=== PATIENT | female | born 1995 | race African-American/Black ===

== ENCOUNTER 2024-10-06 04:26 | Emergency (ER) | payer SELFPAY ==
[2024-10-06 04:28] VITALS: BP 120/80
[2024-10-06 04:50] VITALS: BMI 27.2
[2024-10-06 05:06] VITALS: BP 101/70
[2024-10-06] MEDS: DUONEB 3 ML INH (05:42)
[2024-10-06] MEDS: DELTASONE 50 MG PO (05:42)
[2024-10-06] MEDS: ZITHROMAX 500 MG PO (05:42)
[2024-10-06 05:48] VITALS: BP 112/50
[2024-10-06 05:53] LABS: COVID-19 Antigen Negative (Negative)
--- NOTE | 2024-10-06 06:03 | ED.GENMED ---
History of Present Illness
General
Chief Complaint: Breathing Problem
Source: patient and family (Mother at bedside)
Exam Limitations: none
Time Seen by Provider: 10/06/24 05:13
Nursing documentation reviewed up to this point in time: agreed with
History of Present Illness
History of Present Illness:
This is a 29-year-old woman with history of mild intermittent asthma. Not maintained on maintenance inhalers but does use albuterol rescue inhaler for rare occasions usually with URIs.
She complains of several day history of nasal congestion with onset of cough a few days ago, increased work of breathing since yesterday and has been using her albuterol inhaler multiple times throughout the day yesterday.
Along with mild nasal congestion she developed left earache yesterday. Cough has been dry. She denies fever, no chest pain.
No recent travel. She denies leg pain or swelling.
She has been exposed to several younger children with URI symptoms last week.
She denies risk of , last menstrual period ended a few days ago.
She takes no medicines on a daily basis.
Lifelong non-smoker.
No previous hospitalizations for asthma.
Past History
Past History
ED Past Medical History: Asthma and Other (Migraine headaches)
ED Past Surgical History: Gynecological
Social History
Tobacco: Non-smoker
Alcohol: None
Living: with family
Family History
Family History: Other (Noncontributory)
Phy Exam
Physical Exam
Physical Exam:
GENERAL: 29-year-old female appears her stated age, bright and alert, pleasant, appears in no acute distress. Intermittent dry brief cough is noted. No respiratory distress. Able to speak in full sentences. Pulse ox 98% on room air. Afebrile.
Mother is accompanying.
EYE: anicteric
NECK: Supple, nontender, no meningismus, no significant adenopathy.
ENT: posterior pharynx is clear, oral mucosa is moist. Left TM is dull, red with pearly effusion. Right TM is clear. Nares have moderately boggy pale blue turbinates with scant clear rhinorrhea.
CARDIAC: Regular rate and rhythm. no murmur.
LUNGS: no acute respiratory distress, mildly decreased breath sounds throughout with scattered end inspiratory and expiratory wheezing bilaterally.
ABDOMEN: Soft, nondistended, without focal tenderness, normoactive BS.
NEUROLOGICAL: Alert and oriented x3, no focal neuro deficits.
SKIN: Warm and dry, normal color, skin intact. No rash.
MUSCULOSKELETAL: No C/C/E. peripheral pulses are full and equal b/l. No palpable tenderness.
PSYCH: Normal and appropriate interaction.
Scores
Heart Failure Risk
Heart Failure Risk Score: Not Applicable
Course
Orders/Labs/Results
Orders:
Orders
10/06/24 04:52
COVID-19 Antigen Urgent
Source: Nasal Swab
Influenza A+B Rapid Molecular Urgent
SONDRA Source: Nasal Swab
Specimen Description:
10/06/24 05:34
Azithromycin [Zithromax] 500 mg PO NOW STA
Ipratropium/Albuterol Sulfate [Duoneb] 3 ml INH R NOW STA
Prednisone [Deltasone] 50 mg PO NOW STA
Vital Signs
Initial and Last Documented VS:
Initial Vital Signs
Temp Pulse Resp BP Pulse Ox
98.2 F 90 20 120/80 100
10/06/24 04:28 10/06/24 04:28 10/06/24 04:28 10/06/24 04:28 10/06/24 04:28
Last Documented Vital Signs
Temp Pulse Resp BP Pulse Ox
98.2 F 92 16 112/50 97
10/06/24 04:28 10/06/24 05:48 10/06/24 05:48 10/06/24 05:48 10/06/24 05:48
MDM/Problems Addressed
Differential Diagnosis Includes:
History and exam consistent with acute exacerbation of asthma. Pneumonia is less likely.
She is also noted to have acute left otitis media.
COVID and flu testing are pending.
Will give DuoNeb nebulizer and initiate prednisone for asthma exacerbation. Will start Zithromax for acute left otitis media.
Overall well in appearance. Without respiratory distress. Afebrile. At this point no indication for imaging nor laboratory studies other than COVID and flu testing.
Chronic conditions affecting care: Asthma
Acute Exacerbation and/or Progression of Chronic Illness: Asthma
*Pulse Oximetry
Patient hypoxic: no
*Critical Care Note
Total Time (30-74mins, 75-104mins- exclusive of procedures): Not Applicable
Update Note
Update Note:
06:15
Patient feeling improved after nebulizer treatment.
Lungs with increased air movement, minimal end expiratory wheezing persists but otherwise lungs are clear to auscultation.
Cough is markedly improved.
COVID and flu testing are negative.
Patient requesting nebulizer solution and nebulizer as this was more effective than her albuterol inhaler. Prescription for albuterol Nebules and nebulizer has been sent to her pharmacy as well as an additional 2-day course of Zithromax 500 mg once
daily and prednisone taper.
Discussed importance of staying well-hydrated on a daily basis.
Prompt follow-up with PCP for recheck.
Return precautions discussed.
ED Attending Note
-
Portions of this chart may have been created with voice recognition software.� Occasional wrong word or��sound alike� substitutions may have occurred due to the inherent limitations of voice recognition software.
Discharge Plan
Departure
Patient Disposition: Home (Routine Discharge)
Date of Disposition: 10/06/24
Time of Disposition: 06:09
Patient with high blood pressure during this ER visit?: No
Condition: Good
Discharge Problem:
Acute asthma exacerbation, Acute left otitis media
Instructions: Asthma, Adult (DC), Ear infections in adults
Prescriptions:
New
prednisone 10 mg Tablet
See Rx Instructions .ROUTE .COMPLEX Qty: 30 0RF
Rx Instructions:
Take By Mouth:
40 mg daily x3 days, 30 mg daily x3 days,
20 mg daily x3 days, 10 mg daily x3 days.
azithromycin [Zithromax TRI-MIMI] 500 mg tablet
500 mg PO DAILY 2 Days Qty: 2 0RF
albuterol sulfate 2.5 mg /3 mL (0.083 %) solution for nebulization
2.5 mg inhalation QID PRN (Reason: shortness of breath or wheezing) Qty: 180 0RF
(DME) nebulizer and compressor Device
See Rx Instructions .Route Qty: 1 0RF
Rx Instructions:
As directed
No Action
Advil
200 mg PO Q6H PRN (Reason: pain)
albuterol sulfate 90 mcg/actuation Hfa Aerosol Inhaler
2 puff INHALATION 6XD PRN (Reason: wheezing)
Referrals:
Jorge Dhillon DO [Family Provider] - Call in 1-3 days for appt
Interventions
Interventions:
*Risk Screen - Suicide Last Done: 10/06/24 04:28
*General Assessment Last Done: 10/06/24 04:50
*Neglect/Abuse Screening Last Done: 10/06/24 04:28
ED- Fall Risk Assessment Last Done: 10/06/24 04:50
*ED COVID-19 Vaccine History Last Done: 10/06/24 04:50
ED- Cardiac Assessment Last Done: 10/06/24 04:50
ED- Pulmonary Assessment Last Done: 10/06/24 04:50
Discharge Date and Time
Print Language: ZAMBIAN
== END 2024-10-06 06:15 | disposition home or self-care (01) ==
LOC: EMR 04:26
PROVIDERS: EMERGENCY PHYSICIAN Emergency Medicine; FAMILY PHYSICIAN Family Medicine
DX: J45.21 Mild intermittent asthma with (acute) exacerbation (principal); H66.92 Otitis media, unspecified, left ear; Z11.52 Encounter for screening for COVID-19
CPT/HCPCS: 94640; 99283; 87502; 87811

== ENCOUNTER 2025-04-27 20:04 | Emergency (ER) | payer SELFPAY ==
[2025-04-27 20:05] VITALS: BP 142/95
[2025-04-27 21:17] VITALS: BMI 27.4
[2025-04-27 21:18] VITALS: BP 124/84
--- NOTE | 2025-04-27 21:33 | ED.GENMED ---
History of Present Illness
General
Chief Complaint: Allergic Reaction
Time Seen by Provider: 04/27/25 21:33
History of Present Illness
History of Present Illness:
FOCUSED PAST MEDICAL HISTORY
- Migraines, asthma, GERD
REVIEW OF OLD RECORDS
- The patient was seen in the emergency department here at [facility] in October 2022 with an acute asthma exacerbation
Note:
CHIEF COMPLAINT(S)
Shortness of breath and tightness at the site of tuberculosis skin test (PPD) administration.
HISTORY OF PRESENT ILLNESS
The patient is a 30-year-old female who presented with complaints of shortness of breath and chest tightness. The symptoms began after undergoing a tuberculosis skin test (PPD), which was administered on the left forearm. The patient reported
feeling a reaction at the site of injection, describing it as tender and tight. She noted intermittent shortness of breath but was not feeling short of breath during the current encounter. The chest pain was not accompanied by abnormal
electrocardiogram (EKG) findings during examination.
Additional self-reported symptoms included a sensation of throat tightness, though no visible swelling was observed on examination. The patient denied any rash or itchiness. It was noted that she had taken her inhaler but was contemplating whether
she required further breathing treatment. The placing of the tuberculosis skin test and a reaction at the site were discussed, and the possibility of anxiety or panic contributing to her symptoms was considered.
SOCIAL HISTORY
The patient lives with her mother, who was present during the consultation.
MEDICATIONS
The patient uses an inhaler, but no specific medications or dosages were mentioned.
REVIEW OF SYSTEMS
- Respiratory: Intermittent shortness of breath.
- Musculoskeletal: Tenderness and tightness at the site of PPD test administration.
- Neurological: Sensation of throat tightness, but no visible swelling or physical obstruction identified.
PHYSICAL EXAM
General: Alert, no acute distress.
Skin: Warm, dry.
Head: Normocephalic, atraumatic.
Neck: Supple, trachea midline.
Eye Ears, nose, mouth and throat: Oral mucosa moist, no visible swelling noted. No uvular edema, no tongue swelling
Cardiovascular: Normal peripheral perfusion, No edema.
Respiratory: Respirations are non-labored. Breath sounds are clear and equal, moving air well, no wheeze
Gastrointestinal: Abdomen nondistended.
Back: Normal range of motion, Normal alignment. Some tightness noted to the upper trapezius musculature
Musculoskeletal: No significant tenderness at the PPD site of the left forearm
Neurological: Alert and oriented to person, place, time, and situation, No focal neurological deficit observed.
Psychiatric: Cooperative, appropriate mood & affect.
PROBLEM LIST
Acute:
- Reaction to tuberculosis skin test (PPD) administration.
- Anxiety/Panic-related symptoms.
PLAN
1. Reassurance provided regarding airway patency and non-labored breathing.
2. Advised taking Benadryl before bed as needed to alleviate anxiety-related symptoms.
3. Prescription for an Epinephrine auto-injector (EpiPen) provided for potential future allergic reactions causing severe symptoms.
4. Advised against the use of steroids due to potential anxiety exacerbation unless symptoms worsen.
DIFFERENTIAL DIAGNOSIS
The Differential Diagnosis includes, in no particular order and is not limited to:
1. Localized reaction to the PPD test.
2. Anxiety or panic attack.
3. Allergic reaction or hypersensitivity to PPD or adjuvant.
4. Stress or emotional distress.
5. Musculoskeletal pain around the injection site.
6. Respiratory distress or reversible airway obstruction.
7. Upper respiratory tract infection.
8. Gastroesophageal reflux disease (GERD)-related symptoms.
9. Tracheitis or pharyngitis.
10. Cardiac etiology, though less likely given normal EKG findings.
EKG
- Sinus 70, normal axis, nonspecific ST abnormality, no old to compare
SUMMARY OF ENCOUNTER
The patient, a 30-year-old female, presented with shortness of breath and chest tightness after receiving a TB test (PPD) earlier today. She suspected a reaction to the test. She does have a known history of asthma and reported chest discomfort.
Examination showed she was moving air well, and her EKG was normal. The patient also admitted to experiencing anxiety. After taking diphenhydramine (Benadryl), her symptoms improved, leading to a probable diagnosis of a reaction to the TB test, with
anxiety potentially contributing.
ASSESSMENT
The patient appears to have a localized reaction to the tuberculosis skin test and possibly anxiety-induced symptoms. Her asthma history and absence of anaphylactic signs suggest a mild reaction.
PLAN
1. Continue monitoring symptoms.
2. Take additional diphenhydramine (Benadryl) if needed at night.
3. Prescribed an epinephrine auto-injector for potential future allergic reactions.
4. Avoid benzodiazepines at this time due to symptom improvement with diphenhydramine.
PATIENT EDUCATION AND COUNSELING
The patient was advised on identifying and managing potential allergic reactions at home. Instructions were provided on the use of an epinephrine auto-injector. Discussed the role anxiety may play in her symptoms and the appropriateness of
diphenhydramine for symptom relief.
FOLLOW-UP INSTRUCTIONS
Follow-up with the primary care provider if symptoms persist or if the TB test site shows increased reaction.
MEDICATION RECONCILIATION
1. Diphenhydramine as needed for symptom relief.
2. Prescribed epinephrine auto-injector for emergency use in future severe allergic reactions.
MEDICAL DECISION MAKING
-Complexity of Data Reviewed:
Chronic conditions affecting care include asthma. Differential diagnosis includes:
1. Localized reaction to the PPD test.
2. Anxiety or panic attack.
3. Allergic reaction or hypersensitivity to PPD or adjuvant.
4. Stress or emotional distress.
5. Musculoskeletal pain around the injection site.
6. Respiratory distress or reversible airway obstruction.
7. Upper respiratory tract infection.
8. Gastroesophageal reflux disease (GERD)-related symptoms.
9. Tracheitis or pharyngitis.
10. Cardiac etiology, though less likely given normal EKG findings.
-Data:
Category 1
Clinical information from patients self-report and history was reviewed.
-Risk:
Consideration of Admission/Observation: Escalation of care including admission/observation was considered given the complexity and risk of the patients presenting complaint, exam findings, and/or their underlying comorbidities. However, ultimately I
feel the patient is safe for outpatient management with close follow up. Reasoning: Work-up reassuring, does not reveal any acute life/organ threatening processes, patients symptoms well controlled upon reevaluation, reexamination is reassuring,
vitals are stable, patient agreeable with discharge, reliable for follow-up.
DIAGNOSIS
1. 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
2. Anxiety disorder, unspecified � ICD-10: F41.9
Past History
Past History
ED Past Medical History: Asthma and Other (Migraine headaches)
ED Past Surgical History: Gynecological
Social History
Tobacco: Non-smoker
Alcohol: None
Living: with family
Family History
Family History: Other (Noncontributory)
Phy Exam
Physical Exam
Physical Exam:
See HPI
Course
Orders/Labs/Results
Orders:
Orders
04/27/25 20:14
EKG [Electrocardiogram (*1)] Urgent
Reason for Study: Shortness of Breath
Comment: Chest discomfort, SOB
04/27/25 20:15
EKG- Treatment ONCE
Vital Signs
Initial and Last Documented VS:
Initial Vital Signs
Temp Pulse Resp BP Pulse Ox
37.1 C 85 20 142/95 100
04/27/25 20:05 04/27/25 20:05 04/27/25 20:05 04/27/25 20:05 04/27/25 20:05
Last Documented Vital Signs
Temp Pulse Resp BP Pulse Ox
37.1 C 83 18 124/84 100
04/27/25 20:05 04/27/25 21:18 04/27/25 21:18 04/27/25 21:18 04/27/25 21:34
*Pulse Oximetry
SaO2: 100
Oxygen Mode of Delivery: Room air
Patient hypoxic: no
*Critical Care Note
Total Time (30-74mins, 75-104mins- exclusive of procedures): Not Applicable
ED Attending Note
-
Portions of this chart may have been created with voice recognition software.� Occasional wrong word or��sound alike� substitutions may have occurred due to the inherent limitations of voice recognition software.
Discharge Plan
Departure
Patient Disposition: Home (Routine Discharge)
Date of Disposition: 04/27/25
Time of Disposition: 21:40
Patient with high blood pressure during this ER visit?: Yes
Discharge Problem:
Allergic reaction
Prescriptions:
New
epinephrine [EpiPen 2-Mimi] 0.3 mg/0.3 mL auto-injector
0.3 mg IM Q5-15M PRN (Reason: hypersensitivity reaction) Qty: 2 0RF
No Action
Advil
200 mg PO Q6H PRN (Reason: pain)
albuterol sulfate 90 mcg/actuation Hfa Aerosol Inhaler
2 puff INHALATION 6XD PRN (Reason: wheezing)
prednisone 10 mg Tablet
See Rx Instructions .ROUTE .COMPLEX Qty: 30 0RF
Rx Instructions:
Take By Mouth:
40 mg daily x3 days, 30 mg daily x3 days,
20 mg daily x3 days, 10 mg daily x3 days.
azithromycin [Zithromax TRI-MIMI] 500 mg tablet
500 mg PO DAILY 2 Days Qty: 2 0RF
albuterol sulfate 2.5 mg /3 mL (0.083 %) solution for nebulization
2.5 mg inhalation QID PRN (Reason: shortness of breath or wheezing) Qty: 180 0RF
(DME) nebulizer and compressor Device
See Rx Instructions .Route Qty: 1 0RF
Rx Instructions:
As directed
Referrals:
NONE,* [Family Provider, Internal Medicine]
Activity Restrictions/Additional Instructions:
I recommend he take 1 additional Benadryl tonight before bed if you are having any ongoing symptoms. Return here if worse or other concerns. I did send a prescription for an EpiPen to your pharmacy.
Interventions
Interventions:
*Risk Screen - Suicide Last Done: 04/27/25 20:05
*General Assessment Last Done: 04/27/25 20:05
*Neglect/Abuse Screening Last Done: 04/27/25 20:05
ED- Cardiac Assessment Last Done: 04/27/25 21:19
ED- Pulmonary Assessment Last Done: 04/27/25 21:19
ED-Skin Assessment Last Done: 04/27/25 21:19
Discharge Date and Time
Print Language: LATVIAN
== END 2025-04-27 21:51 | disposition home or self-care (01) ==
LOC: EMR 20:04
PROVIDERS: EMERGENCY PHYSICIAN Emergency Medicine
DX: T78.40XA Allergy, unspecified, initial encounter (principal); X58.XXXA Exposure to other specified factors, initial encounter; R76.11 Nonspecific reaction to tuberculin skin test without active tuberculosis; F41.9 Anxiety disorder, unspecified; J45.909 Unspecified asthma, uncomplicated
CPT/HCPCS: 99283; 93005